=== PATIENT | female | born 1950 | race Caucasian/White ===

== ENCOUNTER 2016-05-29 07:55 | Day surgery (SDC) | payer MEDICARE, OTHER ==
[2016-05-27 09:01] VITALS: BMI 39.6
[~2016-05-29 07:55] MED LIST: LACTATED RINGERS 1,000 ML IV SCH
[2016-05-29 08:20] VITALS: TEMP 98.1
[2016-05-29] MEDS ORDERED: LIDOCAINE 1% 20 ML VIAL (10MG/ML) FOR IV START INTRADERMA ONE (08:26)
[2016-05-29] MEDS ORDERED: LIDOCAINE 1% INJ 10MG/ML (20 ML MDV) ONE (09:23)
[2016-05-29] MEDS ORDERED: PROPOFOL 10 MG/ML 20 ML VIAL IV ONE (09:23)
--- NOTE | 2016-05-29 09:41 | P.PCN ---
Date of Procedure: 05/29/16 Procedure(s) Performed: Brief history: Patient is a pleasant 65-year-old white female, scheduled for an elective upper endoscopy as well as colonoscopy as a part of evaluation of possible GERD/for the last 2 months duration and prior history of colon polyps. Her last colonoscopy was in 2009. Procedure performed: Esophagogastroduodenoscopy with biopsy Colonoscopy Preoperative diagnosis: Chronic cough/GERD History of colon polyps Anesthesia: MAC Procedure: After informed consent was obtained from the patient was brought into the endoscopy unit and IV conscious sedation was administered by anesthesia under continuous monitoring. Initially upper endoscopy was done. The Olympus GF 160 video endoscope was inserted inserted into the mouth and esophagus intubated without any difficulty and was gradually advanced into the stomach and duodenum and carefully examined. The bulb and second part of the duodenum appeared normal. The scope was then withdrawn into the stomach adequately insufflated with air and upon careful examination the antrum had scattered erosions consistent with gastritis and biopsies were done from this area. The body, cardia and fundus appeared normal. The scope was then withdrawn into the esophagus. The GE junction was located at 40 cm to the incisors. It appeared regular with no erythema erosions or ulcerations. Rest of the esophagus appeared normal. labs were done from the distal esophagus. Patient tolerated the procedure well. At this time the patient continued to remain sedation. Initial digital rectal examination was normal. Olympus CF 160 video colonoscope was then inserted into the rectum and gradually advanced to the cecum without any difficulty. Careful examination was performed as the scope was gradually being withdrawn. The prep was excellent. The cecum, ascending colon, transverse colon, descending colon, sigmoid colon and rectum appeared normal. Retroflexion was performed in the rectum and no lesions were noted. Patient tolerated the procedure well. Impression: 1. Upper endoscopy revealed mild antral gastritis but no evidence of esophagitis. 2. Colonoscopy revealed normal-appearing colon from rectum to cecum with no evidence of colitis or colorectal neoplasia. Recommendations: Findings of this examination were discussed with the patient as well as her family. She was advised to follow with the biopsy results. She was restarted on Prilosec 40 mg daily and she was advised to continue the same for 3 months to see if she has any improvement in her. She can have a repeat colonoscopy in 5 years because of the prior history of colon polyps.
[2016-05-29 10:01] VITALS: BP 130/88; PULSE 77; RESP 18
== END 2016-05-29 10:19 | disposition home or self-care (01) ==
LOC: ORWHC2ENDO 07:55
PROVIDERS: ATTEND Internal Medicine Gastroenterology
DX: K29.50 Unspecified chronic gastritis without bleeding (principal); Z12.11 Encounter for screening for malignant neoplasm of colon; K21.9 Gastro-esophageal reflux disease without esophagitis; Z86.010 Personal history of colon polyps; Z79.899 Other long term (current) drug therapy
CPT/HCPCS: 88305; 88342; 43239; J2001; J2704; G0121

== ENCOUNTER → 2017-07-21 | Outpatient (CLI) | payer MEDICARE, OTHER | END | disposition home or self-care (01) | LOC: LABWHC1 10:02 | PROVIDERS: ATTEND Otolaryngology | DX: J30.89 Other allergic rhinitis (principal) | CPT/HCPCS: 36415 ==

== ENCOUNTER 2021-09-11 13:28 | Observation (INO) | payer MEDICARE, OTHER ==
--- NOTE | 2021-09-11 16:02 | ED ---
General Adult HPI - General Chief complaint: Neuro Symptoms/Deficit Stated complaint: Hypertension/TIA Symptoms/Sent by [facility] Time Seen by Provider: 09/11/21 15:37 Source: patient, RN notes reviewed Mode of arrival: ambulatory Limitations: no limitations - History of Present Illness Initial comments: Patient is a pleasant 71-year-old female presenting to the emergency department with concerns for speech problems. Symptoms started 2 days ago. Patient had complete aphasia last around 5 minutes. Patient has had some occasional garbled words and difficulty finding words since that time. This has somewhat progressed. No extremity weakness. Patient does not feel confused. Patient has had some difficulty with her asthma recently as well. Patient did have computed tomography scan done 2 days ago. - Related Data Home Medications Medication Instructions Recorded Confirmed Albuterol Inhaler [Ventolin Hfa 1 - 2 puff INHALATION Q6HR PRN 05/27/16 05/29/16 Inhaler] Cetirizine HCl [Zyrtec] 10 mg PO DAILY 05/27/16 05/29/16 Ergocalciferol (Vitamin D2) 50,000 unit PO TH 05/27/16 05/29/16 [Vitamin D2] Escitalopram [Lexapro] 20 mg PO HS 05/27/16 05/29/16 Ibuprofen [Advil] 400 mg PO Q6H PRN 05/27/16 05/29/16 Losartan [Cozaar] 25 mg PO HS 05/27/16 05/29/16 Multivit-Min/Iron/Folic/Lutein 1 each PO DAILY 05/27/16 05/29/16 [Centrum Silver Women Tablet] Prilosec 1 tab PO DAILY 05/27/16 05/29/16 Allergies Allergy/AdvReac Type Severity Reaction Status Date / Time codeine Allergy Nausea & Verified 09/11/21 15:56 Vomiting Iodinated Contrast Media Allergy Unknown Verified 09/11/21 15:56 latex Allergy Swelling Verified 09/11/21 15:56 prednisone Allergy tachycardia, Verified 09/11/21 15:56 elev. b/p, red face Sulfa (Sulfonamide Allergy Nausea & Verified 09/11/21 15:56 Antibiotics) Vomiting suture Allergy "they Verified 09/11/21 15:56 don't hold, and I get infection" Review of Systems ROS Statement: Those systems with pertinent positive or pertinent negative responses have been documented in the HPI. ROS Other: All systems not noted in ROS Statement are negative. Constitutional: Denies: fever Eyes: Denies: eye pain ENT: Denies: ear pain Respiratory: Reports: as per HPI Cardiovascular: Denies: chest pain Endocrine: Denies: fatigue Gastrointestinal: Denies: abdominal pain Genitourinary: Denies: dysuria Musculoskeletal: Denies: back pain Skin: Denies: rash Neurological: Reports: as per HPI. Denies: headache, weakness, confusion Past Medical History Past Medical History: Asthma, COPD, CVA/TIA, Hyperlipidemia, Hypertension History of Any Multi-Drug Resistant Organisms: None Reported Past Surgical History: Cholecystectomy, Orthopedic Surgery, Tubal Ligation Past Psychological History: No Psychological Hx Reported Smoking Status: Never smoker Past Alcohol Use History: None Reported Past Drug Use History: None Reported General Exam Limitations: no limitations General appearance: alert, in no apparent distress Head exam: Present: normocephalic Eye exam: Present: normal appearance, PERRL, EOMI ENT exam: Present: normal oropharynx Neck exam: Present: normal inspection Respiratory exam: Present: normal lung sounds bilaterally Cardiovascular Exam: Present: regular rate, normal rhythm GI/Abdominal exam: Present: soft. Absent: tenderness Extremities exam: Present: normal inspection Neurological exam: Present: alert, oriented X3, CN II-XII intact. Absent: motor sensory deficit Expanded Neurological exam: Present: protecting the airway Cranial nerves: EOM's Intact: Normal Sensory exam: Upper Extremity Light Touch: Normal, Lower Extremity Light Touch: Normal Motor strength exam: RUE: 5, LUE: 5, RLE: 5, LLE: 5 Eye Response: (4) open spontaneously Motor Response: (6) obeys commands Verbal Response: (5) oriented Psychiatric exam: Present: anxious Skin exam: Present: normal color Course Vital Signs 09/11/21 15:46 Temperature 98.2 F Pulse Rate 111 H Respiratory 18 Rate Blood Pressure 190/103 O2 Sat by Pulse 97 Oximetry EKG Findings - EKG Comments: EKG Findings:: Sinus rhythm with 3-99. HI 113. QRS 96. QT 327. QTC 393. Normal axis. Normal QRS. No acute ST change. Medical Decision Making - Medical Decision Making Patient reevaluated. Patient and family updated. [facility] has been paged for admission, covering for hospital observation call - Lab Data Result diagrams: 09/11/21 16:48 09/11/21 16:48 Lab Results 09/11/21 09/11/21 09/11/21 Range/Units 15:57 16:48 16:48 WBC 11.3 H (3.8-10.6) k/uL RBC 4.90 (3.80-5.40) m/uL Hgb 15.2 (11.4-16.0) gm/dL Hct 48.0 H (34.0-46.0) % MCV 98.1 (80.0-100.0) fL MCH 31.1 (25.0-35.0) pg MCHC 31.7 (31.0-37.0) g/dL RDW 12.8 (11.5-15.5) % Plt Count 302 (150-450) k/uL MPV 7.6 Neutrophils % 70 % Lymphocytes % 19 % Monocytes % 6 % Eosinophils % 2 % Basophils % 1 % Neutrophils # 7.9 H (1.3-7.7) k/uL Lymphocytes # 2.2 (1.0-4.8) k/uL Monocytes # 0.7 (0-1.0) k/uL Eosinophils # 0.2 (0-0.7) k/uL Basophils # 0.1 (0-0.2) k/uL PT 10.8 (9.0-12.0) sec INR 1.0 (<1.2) APTT 27.2 (22.0-30.0) sec Sodium (137-145) mmol/L Potassium (3.5-5.1) mmol/L Chloride (98-107) mmol/L Carbon Dioxide (22-30) mmol/L Anion Gap mmol/L BUN (7-17) mg/dL Creatinine (0.52-1.04) mg/dL Est GFR (CKD-EPI)AfAm (>60 ml/min/1.73 sqM) Est GFR (CKD-EPI)NonAf (>60 ml/min/1.73 sqM) Glucose (74-99) mg/dL Calcium (8.4-10.2) mg/dL Total Bilirubin (0.2-1.3) mg/dL AST (14-36) U/L ALT (4-34) U/L Alkaline Phosphatase (38-126) U/L Troponin I (0.000-0.034) ng/mL Total Protein (6.3-8.2) g/dL Albumin (3.5-5.0) g/dL Urine Color Light Yellow Urine Appearance Clear (Clear) Urine pH 6.0 (5.0-8.0) Ur Specific [place] 1.011 (1.001-1.035) Urine Protein Negative (Negative) Urine Glucose (UA) Negative (Negative) Urine Ketones Trace H (Negative) Urine Blood Negative (Negative) Urine Nitrite Negative (Negative) Urine Bilirubin Negative (Negative) Urine Urobilinogen <2.0 (<2.0) mg/dL Ur Leukocyte Esterase Negative (Negative) Urine Opiates Screen Not Detected (NotDetected) Ur Oxycodone Screen Not Detected (NotDetected) Urine Methadone Screen Not Detected (NotDetected) Ur Propoxyphene Screen Not Detected (NotDetected) Ur Barbiturates Screen Not Detected (NotDetected) U Tricyclic Antidepress Not Detected (NotDetected) Ur Phencyclidine Scrn Not Detected (NotDetected) Ur Amphetamines Screen Not Detected (NotDetected) U Methamphetamines Scrn Not Detected (NotDetected) U Benzodiazepines Scrn Not Detected (NotDetected) Urine Cocaine Screen Not Detected (NotDetected) U Marijuana (THC) Screen Not Detected (NotDetected) 09/11/21 09/11/21 Range/Units 16:48 16:48 WBC (3.8-10.6) k/uL RBC (3.80-5.40) m/uL Hgb (11.4-16.0) gm/dL Hct (34.0-46.0) % MCV (80.0-100.0) fL MCH (25.0-35.0) pg MCHC (31.0-37.0) g/dL RDW (11.5-15.5) % Plt Count (150-450) k/uL MPV Neutrophils % % Lymphocytes % % Monocytes % % Eosinophils % % Basophils % % Neutrophils # (1.3-7.7) k/uL Lymphocytes # (1.0-4.8) k/uL Monocytes # (0-1.0) k/uL Eosinophils # (0-0.7) k/uL Basophils # (0-0.2) k/uL PT (9.0-12.0) sec INR (<1.2) APTT (22.0-30.0) sec Sodium 136 L (137-145) mmol/L Potassium 4.3 (3.5-5.1) mmol/L Chloride 106 (98-107) mmol/L Carbon Dioxide 23 (22-30) mmol/L Anion Gap 7 mmol/L BUN 14 (7-17) mg/dL Creatinine 0.84 (0.52-1.04) mg/dL Est GFR (CKD-EPI)AfAm 81 (>60 ml/min/1.73 sqM) Est GFR (CKD-EPI)NonAf 71 (>60 ml/min/1.73 sqM) Glucose 96 (74-99) mg/dL Calcium 9.1 (8.4-10.2) mg/dL Total Bilirubin 0.9 (0.2-1.3) mg/dL AST 30 (14-36) U/L ALT 18 (4-34) U/L Alkaline Phosphatase 96 (38-126) U/L Troponin I <0.012 (0.000-0.034) ng/mL Total Protein 6.9 (6.3-8.2) g/dL Albumin 4.0 (3.5-5.0) g/dL Urine Color Urine Appearance (Clear) Urine pH (5.0-8.0) Ur Specific [place] (1.001-1.035) Urine Protein (Negative) Urine Glucose (UA) (Negative) Urine Ketones (Negative) Urine Blood (Negative) Urine Nitrite (Negative) Urine Bilirubin (Negative) Urine Urobilinogen (<2.0) mg/dL Ur Leukocyte Esterase (Negative) Urine Opiates Screen (NotDetected) Ur Oxycodone Screen (NotDetected) Urine Methadone Screen (NotDetected) Ur Propoxyphene Screen (NotDetected) Ur Barbiturates Screen (NotDetected) U Tricyclic Antidepress (NotDetected) Ur Phencyclidine Scrn (NotDetected) Ur Amphetamines Screen (NotDetected) U Methamphetamines Scrn (NotDetected) U Benzodiazepines Scrn (NotDetected) Urine Cocaine Screen (NotDetected) U Marijuana (THC) Screen (NotDetected) - Radiology Data Radiology results: report reviewed (CT brain shows no acute process), image reviewed (X-ray shows no acute process) Disposition Clinical Impression: Cerebrovascular accident (CVA) Disposition: ADMITTED IP TO THIS HOSP Is patient prescribed a controlled substance at d/c from ED?: No Referrals: Nonstaff,Physician [Primary Care Provider] - 1-2 days Time of Disposition: 18:49
[2021-09-11 17:06] LABS: Basophils # (A) 0.1 k/uL (0-0.2); Basophils % (A) 1 %; Eosinophils # (A) 0.2 k/uL (0-0.7); Eosinophils % (A) 2 %; HGB 15.2 gm/dL (11.4-16.0); Lymphocytes # (A) 2.2 k/uL (1.0-4.8); Lymphocytes % (A) 19 %; MCH 31.1 pg (25.0-35.0); MCHC 31.7 g/dL (31.0-37.0); MCV 98.1 fL (80.0-100.0); Mean Platelet Volume 7.6; Monocytes # (A) 0.7 k/uL (0-1.0); Monocytes % (A) 6 %; Neutrophils # (A) 7.9 k/uL (1.3-7.7); Neutrophils % (A) 70 %; Platelet Count 302 k/uL (150-450); RDW 12.8 % (11.5-15.5); WBC 11.3 k/uL (3.8-10.6)
[2021-09-11 17:12] LABS: Appearance,Urine Clear (Clear); Bilirubin,Urine Negative (Negative); Blood,Urine Negative (Negative); Color,Urine Light Yellow; Glucose,Urine (UA) Negative (Negative); Ketones,Urine Trace (Negative); Leukocyte Esterase,Urine Negative (Negative); Nitrite,Urine Negative (Negative); Protein,Urine Negative (Negative); Specific Gravity,Urine 1.011 (1.001-1.035); Urobilinogen,Urine <2.0 mg/dL (<2.0)
[2021-09-11 17:16] LABS: Calcium 9.1 mg/dL (8.4-10.2); Potassium 4.3 mmol/L (3.5-5.1); Total Bilirubin 0.9 mg/dL (0.2-1.3); Total Protein 6.9 g/dL (6.3-8.2)
[2021-09-11 17:17] LABS: Partial Thromboplastin Time 27.2 sec (22.0-30.0); Prothrombin Time 10.8 sec (9.0-12.0)
[2021-09-11 17:32] LABS: Amphetamine Screen,Urine Not Detected (NotDetected); Barbiturate Screen,Urine Not Detected (NotDetected); Benzodiazepines Screen,Urine Not Detected (NotDetected); Cocaine Screen,Urine Not Detected (NotDetected); Methadone Screen, Urine Not Detected (NotDetected); Opiate Screen,Urine Not Detected (NotDetected); Oxycodone Screen, Urine Not Detected (NotDetected); Phencyclidine Screen,Urine Not Detected (NotDetected); Tricyclic Antidepressant,Urine Not Detected (NotDetected); Urn Cannabinoid Scrn Not Detected (NotDetected)
--- NOTE | 2021-09-11 18:09 | CT ---
EXAMINATION TYPE: CT brain wo con DATE OF EXAM: 09/11/2021 HISTORY: htn, weakness CT DLP: 1113.4 mGycm. Automated Exposure Control for Dose Reduction was Utilized. TECHNIQUE: CT scan of the head is performed without contrast. COMPARISON: None. FINDINGS: There is no acute intracranial hemorrhage or midline shift identified. There is diffuse v entricular and sulcal prominence consistent with diffuse age-related cerebral atrophy. There is low- attenuation in the periventricular white matter consistent with chronic small vessel ischemic change. The globes are intact and the visualized sinuses are clear. IMPRESSION: No acute intracranial hemorrhage or midline shift. There is diffuse age-related cerebra l atrophy and chronic small vessel ischemic change noted.
--- NOTE | 2021-09-11 18:10 | XR ---
EXAMINATION: XR chest 2V DATE AND TIME: 09/11/2021 5:48 PM CLINICAL INDICATION: PHH; altered mental status TECHNIQUE: Departmental protocol COMPARISON: None FINDINGS: Overlying soft tissues are prominent. The lungs appear well-expanded and clear. The pleural spaces are negative. The cardiac silhouette is not enlarged. The remainder of the mediastinal silhouette is unremarkable. The skeletal structures and soft tissues are negative for acute findings. IMPRESSION: No acute radiographic process.
[2021-09-11] MEDS ORDERED: ASPIRIN 325 MG TAB PO STA (18:50)
[2021-09-11] MEDS ORDERED: ALPRAZolam 0.25 MG TAB PO STA (18:50)
[2021-09-11] MEDS: SODIUM CHLORIDE 0.9% 1,000 ML IV SCH (20:33)
[2021-09-11] MEDS: ACETAMINOPHEN TAB 500 MG TAB PO PRN (22:21)
--- NOTE | 2021-09-12 03:11 | P.HPIM ---
History of Present Illness H&P Date: 09/11/21 Chief Complaint: Speech difficulties and dizziness 71-year-old female with history of asthma and hypertension Patient comes in for evaluation of speech difficulties and ongoing dizziness he denies any falls or recent head injury. She reports that on Wednesday around evening time she woke up from a nap and was mumbling having difficulties finding words that lasted for about 5 minutes she was concerned that she was having a stroke. However she didn't seek medical attention until next day when she went to the hospital due to breathing difficulties she was given some breathing treatments and work was discharged home then she got concerned that she forgot to mention the recent neurologic symptoms that was concerning for a stroke to her so she goes again to the hospital for evaluation she claims that the rash and few tests doing scan of the brain and other blood work and carotid ultrasound and they all came back normal she was again sent home. However today she was still not feeling well still having ongoing speech difficulties and now dizziness again denies any falling denies any head injury she denies any chest pain trouble breathing denies any other focal neuro deficits denies any gait disturbances. In the ED CT of the brain was negative patient was admitted for neurology evaluation EKG normal sinus rhythm Chest x-ray no acute pathology Blood work overall unremarkable Patient denies any tobacco smoking or alcohol consumption. Patient denies any history of cardiac disease denies any history of stroke denies any history of atrial fibrillation Review of Systems Pertinent positives as noted in HPI. All other systems were reviewed and are negative Past Medical History Past Medical History: Asthma, COPD, CVA/TIA, Hyperlipidemia, Hypertension History of Any Multi-Drug Resistant Organisms: None Reported Past Surgical History: Cholecystectomy, Orthopedic Surgery, Tubal Ligation Past Psychological History: No Psychological Hx Reported Smoking Status: Never smoker Past Alcohol Use History: None Reported Past Drug Use History: None Reported - Past Family History Family Family Medical History: No Reported History Medications and Allergies Home Medications Medication Instructions Recorded Confirmed Type Albuterol Inhaler [Ventolin Hfa 2 puff INHALATION RT-QID PRN 05/27/16 09/11/21 History Inhaler] Cetirizine HCl [Zyrtec] 10 mg PO DAILY 05/27/16 09/11/21 History Multivit-Min/Iron/Folic/Lutein 1 tab PO DAILY 05/27/16 09/11/21 History [Centrum Silver Women Tablet] Acetaminophen Tab [Tylenol Tab] 1,000 mg PO Q6H PRN 09/11/21 09/11/21 History Aspirin EC [Ecotrin Low Dose] 81 mg PO DAILY 09/11/21 09/11/21 History Atorvastatin [Lipitor] 40 mg PO DAILY 09/11/21 09/11/21 History Crystal Flush Balance Capsules 2 cap PO DAILY 09/11/21 09/11/21 History Fluticasone Nasal Taylor [Flonase 2 spr EA NOSTRIL DAILY 09/11/21 09/11/21 History Nasal Taylor] Fluticasone Propionate [Flovent 1 puff INHALATION RT-BID 09/11/21 09/11/21 History Diskus] Losartan [Cozaar] 50 mg PO DAILY 09/11/21 09/11/21 History Montelukast [Singulair] 10 mg PO DAILY 09/11/21 09/11/21 History Allergies Allergy/AdvReac Type Severity Reaction Status Date / Time codeine Allergy Nausea & Verified 09/11/21 19:12 Vomiting Iodinated Contrast Media Allergy Unknown Verified 09/11/21 19:12 latex Allergy Swelling Verified 09/11/21 19:12 @contact site prednisone AdvReac tachycardia, Verified 09/11/21 19:12 elev. b/p, red face Sulfa (Sulfonamide AdvReac Nausea & Verified 09/11/21 19:12 Antibiotics) Vomiting suture AdvReac "they Verified 09/11/21 19:12 don't hold, and I get infection" Physical Exam Vitals: Vital Signs Temp Pulse Resp BP Pulse Ox 09/11/21 15:46 98.2 F 111 H 18 190/103 97 Intake and Output 09/11/21 09/11/21 09/11/21 06:59 14:59 22:59 Other: Weight 113.398 kg Constitutional: No acute distress, conversant, pleasant Eyes: Anicteric sclerae, moist conjunctiva, Pupils equal round reactive to light ENMT: NC/AT Oropharynx clear, no erythema, or exudates Neck: Supple, FROM, no masses, or JVD No carotid bruits No thyromegaly Lungs: Clear to auscultation Clear to percussion Normal respiratory effort, no accessory muscle use Cardiovascular: Heart regular in rate and rhythm, No murmurs, gallops, or rubs No peripheral edema Abdominal: Soft Nontender, no guarding, rebound or rigidity Abdomen moving with respiration Normoactive bowel sounds No hepatomegaly, No splenomegaly No palpable mass No abdominal wall hernia noted Skin: Normal temperature, tone, texture, turgor No induration No subcutaneous nodules No rash, lesions No ulcers Extremities: No digital cyanosis No clubbing Pedal pulses intact and symmetrical Radial pulses intact and symmetrical No calf tenderness Psychiatric: Alert and oriented to person, place and time Appropriate affect fair judgement Neuro Muscles Strength 5/5 in all 4 extremities Sensation to light touch grossly present throughout Cranial nerves II-XII grossly intact No focal sensory deficits, finger-nose exam intact heel bishop exam intact Lymphatics: no palpable cervical or supraclavicular , or inguinal lymph nodes Results CBC & Chem 7: 09/11/21 16:48 09/11/21 16:48 Labs: Abnormal Lab Results - Last 24 Hours (Table) 09/11/21 09/11/21 09/11/21 Range/Units 15:57 16:48 16:48 WBC 11.3 H (3.8-10.6) k/uL Hct 48.0 H (34.0-46.0) % Neutrophils # 7.9 H (1.3-7.7) k/uL Sodium 136 L (137-145) mmol/L Urine Ketones Trace H (Negative) Assessment and Plan Assessment: Recent stroke/TIA Neurochecks Neurology evaluation CT of the brain negative Check lipid profile Check TSH PT/OT evaluation Cardiac monitoring Monitor vital signs Fall precautions Chronic conditions Mild persistent asthma, continue with breathing treatments Hypertension controlled resume home blood pressure medications DVT prophylaxis heparin subcu 3 times a day Full code
[2021-09-12] MEDS: FLUTICASONE 110 MCG INHALER INHALATION SCH ×2 (07:27→19:19)
[2021-09-12] MEDS: HEPARIN SODIUM,PORCINE/PF 5,000 UNIT/0.5 ML SYRINGE SQ SCH ×2 (08:15→17:16)
[2021-09-12] MEDS ORDERED: ASPIRIN 325 MG TAB PO SCH (09:00)
[2021-09-12 09:09] LABS: LDL Cholesterol,Calculated 100.3 mg/dL (0.0-131.0)
--- NOTE | 2021-09-12 12:18 | CA ---
Transthoracic Echo Report Name: Amy Tyler Age: 71 Gender: F : 1950 Exam Date: 09/12/2021 07:50 Exam Location: [facility] Ht (in): 61 Wt (lb): 250 Ordering Physician: Abe Ramos MD Attending/Referring Phys: [id number], Richard Workforce Management Consultant Herminia Taylor RDCS Procedure CPT: Indications: stroke Cardiac Hx: Technical Quality: Technically difficult study Contrast 1: Lumason Total Dose (mL): 1 Contrast 2: Total Dose (mL): MEASUREMENTS (Male / Female) Normal Values 2D ECHO LV Diastolic Diameter PLAX 3.7 cm 4.2 - 5.9 / 3.9 - 5.3 cm LV Systolic Diameter PLAX 2.6 cm IVS Diastolic Thickness 1.3 cm 0.6 - 1.0 / 0.6 - 0.9 cm LVPW Diastolic Thickness 1.2 cm 0.6 - 1.0 / 0.6 - 0.9 cm LV Relative Wall Thickness 0.7 RV Internal Dim ED PLAX 3.2 cm M-MODE Aortic Root Diameter MM 3.7 cm LA Systolic Diameter MM 3.5 cm LA Ao Ratio MM 0.9 MV E Point Septal Separation 1.6 cm AV Cusp Separation MM 2.6 cm DOPPLER AV Peak Velocity 89.6 cm/s AV Peak Gradient 3.2 mmHg MV Area PHT 6.3 cm??? MR Peak Velocity 144.8 cm/s MR Peak Gradient 8.4 mmHg Mitral E Point Velocity 73.4 cm/s Mitral A Point Velocity 76.5 cm/s Mitral E to A Ratio 1.0 MV Deceleration Time 120.8 ms TR Peak Velocity 101.1 cm/s TR Peak Gradient 4.1 mmHg Right Ventricular Systolic Press 8.9 mmHg FINDINGS Left Ventricle Left ventricular ejection fraction is estimated at 55-60 %. Left ventricular cavity size normal.mild concentric left ventricular hypertrophy. Right Ventricle Right ventricle not well visualized. Right ventricular systolic pressure within normal limits. Right Atrium Right atrium not well visualized. Left Atrium Normal left atrial size. Mitral Valve Trace mitral regurgitation.mild mitral annular calcification. Aortic Valve Aortic valve not well visualized. Tricuspid Valve Trace tricuspid regurgitation.structurally normal tricuspid valve. Pulmonic Valve Pulmonic valve not well visualized. Pericardium No pericardial effusion. Aorta Aortic root and proximal ascending aorta not well visualized. CONCLUSIONS Technically difficult study. 1. Normal size and systolic function 2. Trace mitral and tricuspid regurgitation 3. The valvular structures were not well visualized Previewed by: Dr. Avery Noland MD (Electronically Signed) Final Date: 12 September 2021 12:17
[2021-09-12] MEDS: LORATADINE 10 MG TAB PO SCH (13:37)
[2021-09-12] MEDS: MONTELUKAST 10 MG TAB PO SCH (13:38)
[2021-09-12] MEDS: LOSARTAN 50 MG TAB PO SCH (13:38)
[2021-09-12] MEDS: ASPIRIN 81 MG PO SCH (13:38)
[2021-09-12] MEDS: ATORVASTATIN 40 MG TAB PO SCH (13:38)
[2021-09-12] MEDS: SODIUM CHLORIDE 0.9% 1,000 ML IV SCH ×2 (17:05→17:15)
--- NOTE | 2021-09-12 17:21 | P.PN ---
Subjective Progress Note Date: 09/12/21 Hospital course: Patient is a very pleasant 71-year-old female with a past medical history of hypertension, hyperlipidemia, COPD not on home oxygen dependent, and previous TIA. She presented to the emergency department with a chief complaint of difficulties with speech/garbled speech and dizziness. Patient reports intermittent episodes of difficulties with speech and dizziness began 09/08/21 and have waxed and waned accompanied by episodes of chest pain, palpitations, and shortness of breath. Patient underwent full evaluation on 09/09/21 at [facility] for these complaints and reportedly underwent a CT and carotid ultrasound which she reports were both normal findings and was later discharged home. Patient reports these symptoms continue to wax and wane and she reports they have not worsened so she came to the emergency department for further evaluation. In the emergency department patient underwent full evaluation a CT head was completed and negative for acute intercranial process showing age related cerebral atrophy and chronic small vessel ischemic changes. EKG was completed revealing normal sinus rhythm and 99 bpm with no noted T wave or ST abnormality showing no signs of acute ischemia. Chest x-ray negative for acute cardiopulmonary process. CBC, coags, and CMP were all unremarkable. Lipid profile unremarkable. Urinalysis negative for blood or infection. Urine drug screen negative. Patient was admitted under our services with consult cardio logy. Echocardiogram was completed revealing a normal EF 55-60% with trace mitral and tricuspid regurgitation. Physical exam: Patient seen and fully evaluated at bedside this morning. Previous episodes of episodic expressive aphasia have now resolved. Patient currently denies having any headache, lightheadedness, dizziness changes in vision or hearing, chest pain, palpitations, shortness of breath, or experiencing any numbness/tingling/weakness in her extremities. Vital signs reviewed and stable. General: Nontoxic, no distress and appears stated age. Derm: Skin warm and dry, normal coloration for ethnicity. Head: Atraumatic, normocephalic and symmetric. Eyes: EOMs intact, no lid lag, and anicteric sclera Mouth: no lip lesions, mucus membranes moist Cardiovascular: regular rate and rhythm with normal S1S2, no murmur, positive posterior tibial pulses bilaterally, and cap refill < 2 seconds. Lungs: Respirations even, regular, and unlabored on room air. Lungs CTA bilaterally, no rhonchi, no rales, no wheezing, and no accessory muscle usage. Abdominal: soft, nontender to palpation, no guarding, no appreciable organomegaly Ext: ROM intact. No gross muscle atrophy, no edema, no contractures Neuro: Speech clear, face symmetrical and CN II-XII grossly intact with no noted focal neuro deficits Psych: Alert and oriented to person, place, time, and situation. Appropriate and pleasant affect. Assessment and Plan of Care: Episodic Expressive aphasia, now resolved TIA Dizziness -CT head negative for acute intercranial process. -EKG showing normal sinus rhythm -Echocardiogram revealing normal EF between 55 and 60% with trace mitral and tricuspid regurgitation. -Neurology following. Appreciate further recommendations -Neuro checks -Continue daily aspirin and atorvastatin Hypertension -Monitor vital signs and continue daily medication regimen with losartan. COPD -Ventolin nebulizers as needed for wheezing and/or shortness of breath and continue daily Singulair. CODE STATUS: Full code DVT prophylaxis: Lovenox Discussed with: Patient and RN Anticipated discharge date: 1-[address]: home A total of 39 minutes was spent on the care of this complex patient more than 50% of the time was spent in counseling and care coordination. I reviewed the documentation as provided by the ANASTASIYA above, who is the original author of this note. I agree with the documented assessment and plan, with the following changes: none Objective - Vital Signs Vital signs: Vital Signs Temp 98.2 F 09/11/21 15:46 Pulse 111 H 09/11/21 15:46 Resp 18 09/11/21 15:46 BP 190/103 09/11/21 15:46 Pulse Ox 97 09/11/21 15:46 FiO2 Intake & Output 09/11/21 09/12/21 09/12/21 18:59 06:59 18:59 Weight 113.398 kg - Labs CBC & Chem 7: 09/11/21 16:48 09/11/21 16:48 Labs: Abnormal Lab Results - Last 24 Hours (Table) 09/11/21 09/11/21 09/11/21 Range/Units 15:57 16:48 16:48 WBC 11.3 H (3.8-10.6) k/uL Hct 48.0 H (34.0-46.0) % Neutrophils # 7.9 H (1.3-7.7) k/uL Sodium 136 L (137-145) mmol/L Urine Ketones Trace H (Negative)
[2021-09-12] MEDS: ENOXAPARIN 40 MG/0.4 ML SYRINGE SQ SCH (17:31)
--- NOTE | 2021-09-12 20:51 | P.CNNES ---
History of Present Illness Consult date: 09/12/21 Requesting physician: Edward Laguerre Reason for Consult: CVA History of Present Illness: Patient is a 71-year-old right-handed female with history of hypertension, asthma, obesity, came to the hospital for evaluation of possible TIA versus stroke, that happened Wednesday night(2 days prior to arrival to the [facility] ER). Patient states that her woke her up at 5 in the morning and she got startled, which she does not like at all. She sat up and was about to say to her [place] "what the hell", but the words came out unintelligible and nonsensical. She usually wakes up very clearheaded. She said she got scared because of her speech difficulty. She couldn't get words out. She walked to the bathroom, was not off-balance but felt slightly dizzy. She took an aspirin. The spell lasted for slightly over 5 minutes and her speech improved. Since then patient has been having some difficulty with her speech, some trouble talking, if she does not concentrate, gets confused. Her thoughts are not as organized as usually is. She did not seek medical attention, but later during the same morning patient started having shortness of breath, swelling in her legs, could not breathe or walk. Therefore she went to [facility]. She underwent chest x-ray, CTA of the chest which was negative. EKG was normal, but her blood pressure was very high. She was started treatment for nebulizer, and Covid testing was performed. She completely forgot to tell in the ER about the episode of speech difficulty that happened the night prior. Just before her discharge she told the doctor in the ED about possible TIA, therefore she underwent computed tomography scan of the head which was read as normal. Patient states that she underwent carotid Doppler, which was completely normal. She was sent home on aspirin 81 mg daily and was recommended to get back to ER if symptoms do not improve or gets worse. She was not taking any antiplatelet medication prior to this visit. The next morning on Wednesday, her symptoms were not better. Therefore she went back to the [facility]. MRI was recommended, and to follow-up with a neurologist as an outpatient. However because of delays in getting an appointment, she decided to come to the [facility] to have an MRI and see a neurologist. She came to the ER on , yesterday at 1:28 PM She still sort of breath, was complaining of a lot of swelling, bloating pointing to her abdominal region in the legs. She believes today it is better than yesterday. She states the swelling in the legs have been getting worse for the last 2-3 weeks. Patient denies any numbness or tingling in the arms or legs. No focal weakness, or visual symptoms. Patient has history of hypertension, but admits that she ran out of her medications about a month ago. She was checking her blood pressure 3 times a day and was running slightly on the higher side. She denies hyperlipidemia. She never smoked, does not drink alcohol. Patient had a CT head performed yesterday, which revealed no acute intracranial hemorrhage or midline shift. There is diffuse age-related cerebral atrophy and chronic small vessel ischemic change noted. I personally reviewed CT head, and shows no acute process. Agree with the findings. EKG shows sinus rhythm with short MD interval. Chest x-ray showed no acute process. Blood test shows WBC 11.3 hemoglobin 15.2, normal platelets. PT/PTT normal, sodium 136, other electrolytes, renal and hepatic panel are normal troponin negative. Urine drug screen negative. UA negative. Troponin negative. Review of Systems Weight gain of 40 pounds in 2 years. Difficulty breathing, swelling, no chest pain. No abdominal pain. No nausea vomiting or diarrhea. Patient does have visual disturbance which she believes is from Track. No new visual disturbance in the last few days. No numbness or tingling. Patient does have problem with low back. Both legs are numb from knees down which she attributes to the back issues. She had knee surgery 4 years ago. All other review of systems reviewed, unremarkable. Past Medical History Past Medical History: Asthma, COPD, Eye Disorder, GERD/Reflux, Hyperlipidemia, Hypertension, Osteoarthritis (OA) Additional Past Medical History / Comment(s): Pt states she has been having pedal edema past one month, bilateral lower leg numbness/tingling, horse shoe kidney, R eye macular pucker with surgery/states vision is blurry, chronic low back pain, DDD, benign colon polyps, sinus problems History of Any Multi-Drug Resistant Organisms: None Reported Past Surgical History: Cholecystectomy, Joint Replacement, Tubal Ligation Additional Past Surgical History / Comment(s): D&C, bilateral total knee arthroplasties, EGD, colonoscopies/benign polypectomy, R eye laser surgery for macular pucker, R eye cataract removed, pilonidal cyst. Past Anesthesia/Blood Transfusion Reactions: Postoperative Nausea & Vomiting (PONV) Smoking Status: Never smoker - Past Family History Father Family Medical History: Diabetes Mellitus, Eye Disorder, Hypertension Additional Family Medical History / Comment(s): Macular degeneration Mother Family Medical History: Coronary Artery Disease (CAD), Osteoarthritis (OA) Additional Family Medical History / Comment(s): Multiple back surgeries, elevated triglycerides, CABG, GI blockage Family Family Medical History: No Reported History Medications and Allergies Home Medications Medication Instructions Recorded Confirmed Type Albuterol Inhaler [Ventolin Hfa 2 puff INHALATION RT-QID PRN 05/27/16 09/11/21 History Inhaler] Cetirizine HCl [Zyrtec] 10 mg PO DAILY 05/27/16 09/11/21 History Multivit-Min/Iron/Folic/Lutein 1 tab PO DAILY 05/27/16 09/11/21 History [Centrum Silver Women Tablet] Acetaminophen Tab [Tylenol Tab] 1,000 mg PO Q6H PRN 09/11/21 09/11/21 History Aspirin EC [Ecotrin Low Dose] 81 mg PO DAILY 09/11/21 09/11/21 History Atorvastatin [Lipitor] 40 mg PO DAILY 09/11/21 09/11/21 History Crystal Flush Balance Capsules 2 cap PO DAILY 09/11/21 09/11/21 History Fluticasone Nasal [place] [Flonase 2 spr EA NOSTRIL DAILY 09/11/21 09/11/21 History Nasal [place]] Fluticasone Propionate [Flovent 1 puff INHALATION RT-BID 09/11/21 09/11/21 History Diskus] Losartan [Cozaar] 50 mg PO DAILY 09/11/21 09/11/21 History Montelukast [Singulair] 10 mg PO DAILY 09/11/21 09/11/21 History Allergies Allergy/AdvReac Type Severity Reaction Status Date / Time codeine Allergy Nausea & Verified 09/11/21 19:12 Vomiting Iodinated Contrast Media Allergy Unknown Verified 09/11/21 19:12 latex Allergy Swelling Verified 09/11/21 19:12 @contact site prednisone AdvReac tachycardia, Verified 09/11/21 19:12 elev. b/p, red face Sulfa (Sulfonamide AdvReac Nausea & Verified 09/11/21 19:12 Antibiotics) Vomiting suture AdvReac "they Verified 09/11/21 19:12 don't hold, and I get infection" Physical Examination - Vital Signs Vital Signs: Vital Signs Temp Pulse Pulse Resp BP BP Pulse Ox 09/12/21 16:44 98.2 F 84 110/66 95 09/12/21 11:46 79 18 121/78 95 Intake and Output 09/12/21 09/12/21 09/12/21 06:59 14:59 22:59 Other: Weight 113.398 kg Patient is an elderly female, very pleasant, in no acute distress. Patient is alert awake oriented to time place and person. Speech and language functions are normal. Patient can name and repeat very well. No aphasia. Patient has very occasional questionable dysarthric speech. Attention, concentration and fund of knowledge is adequate. On cranial examination, pupils are round and reacting to light, visual parikh are full on confrontation, extraocular muscles are intact with no nystagmus. Face is symmetric, tongue protrudes to the midline. Palatal elevation and sensation normal, hearing and shoulder shrug normal, facial sensation normal. Shoulder shrug normal. On muscle strength testing, there is no pronator drift and the strength is normal in arms and legs distally and proximally. Deep tendon reflexes are symmetric, biceps 1, brachioradialis 1, knees 0, ankles 0 and plantars downgoing bilaterally. Sensory to touch is equal with no neglect. Cerebellar function showed no ataxia for [id number] testing. No dysdiadochokinesia. Tone and bulk of muscles normal. Gait normal. She was fairly steady while walking. On general examination, there is no carotid bruit or murmur, S1-S2 audible. Abdomen is soft nontender. Chest is clear. Patient has mild peripheral edema. Results - Laboratory Findings CBC and BMP: 09/11/21 16:48 09/11/21 16:48 Abnormal Lab Findings: Abnormal Labs 09/11/21 09/11/21 09/11/21 15:57 16:48 16:48 WBC 11.3 H Hct 48.0 H Neutrophils # 7.9 H Sodium 136 L Urine Ketones Trace H Assessment and Plan Assessment: * Possible TIA manifesting with transient expressive aphasia, that lasted for over 5 minutes. However since then she has some subjective difficulty with her speech, although her examination was fairly normal. Her NIH stroke scale is 0. * Hypertension * Hyperlipidemia * Obesity * Asthma Plan: * MRI brain without contrast, rule out acute stroke. * Continue aspirin 81 mg daily (loaded with aspirin 325 mg in the ER). Patient was not taking any antiplatelet medication at home prior to this event. * Patient states she had a carotid Doppler performed 2 days ago in [facility], which was normal. May consider obtaining the report. * 2-D echo was a technically difficult study. It revealed normal left ventri cular size and systolic function. Trace MR, trace TR. Valvular structures not well visualized. The aortic root and proximal ascending aorta not well visualized. EF is 55-60%. Mild concentric LVH. Left atrial size is normal. * Lipid panel with cholesterol 176, LDL 100.3, HDL 53 and triglycerides 112. Agree with starting Lipitor 40 mg daily to target LDL <70. Patient not on statins prior to arrival. * Hemoglobin A1c * Telemetric monitoring showing sinus rhythm in around 84. * Medical management of swelling, COPD, bloating as per IM. * Neurologically clear, if MRI of the brain comes back normal with above recommendations. * Dr. Delatorre Will resume neurology service in the morning.
[2021-09-12] MEDS: ACETAMINOPHEN TAB 500 MG TAB PO PRN (21:44)
[2021-09-13] MEDS: SODIUM CHLORIDE 0.9% 1,000 ML IV SCH (02:58)
[2021-09-13] MEDS: FLUTICASONE 110 MCG INHALER INHALATION SCH (07:46)
[2021-09-13] MEDS: MONTELUKAST 10 MG TAB PO SCH (07:57)
[2021-09-13] MEDS: ATORVASTATIN 40 MG TAB PO SCH (07:57)
[2021-09-13] MEDS: LORATADINE 10 MG TAB PO SCH (07:57)
[2021-09-13] MEDS: LOSARTAN 50 MG TAB PO SCH (07:57)
[2021-09-13] MEDS: ASPIRIN 81 MG PO SCH (07:58)
[2021-09-13] MEDS: ENOXAPARIN 40 MG/0.4 ML SYRINGE SQ SCH ×2 (07:58→08:00)
[2021-09-13] MEDS: ALBUTEROL NEBULIZED 2.5 MG/3 ML INHALATION PRN ×2 (08:05→14:31)
[2021-09-13 08:16] VITALS: RESP 18
[2021-09-13 13:32] VITALS: BP 168/84; TEMP 98.3
--- NOTE | 2021-09-13 13:45 | MR ---
EXAMINATION TYPE: MR brain wo con DATE OF EXAM: 09/13/2021 1:40 PM COMPARISON: NONE HISTORY: cva, weakness, htn. FINDINGS: The ventricles, basal cisterns and sulci overlying the cerebral convexities are mildly enlarged. There is evidence of mild periventricular white matter ischemic demyelination. Remote deep white matter insults are also noted. No acute edema is seen on diffusion weighted imaging. There is no evidence for midline shift or mass effect. Acute intracranial hemorrhage or extra-axial collection is not evident. The paranasal sinuses and mastoid air cells are well-aerated. IMPRESSION: Age-related atrophic and chronic small vessel ischemic change. No acute intracranial process at this time.
--- NOTE | 2021-09-13 14:18 | P.DS ---
Providers Date of admission: 09/11/21 18:50 Expected date of discharge: 09/13/21 Attending physician: Lottie Jaramillo MD Consults: 09/11/21 18:51 Consult Physician Routine Consulting Provider: Angélica Haile Consult Reason/Comments: cva Do you want consulting provider notified?: Yes Primary care physician: Physician Nonstaff Hospital Course: Discharge Diagnosis: Episodic Expressive aphasia, now resolved. Believed to be secondary to TIA. TIA. Continue daily aspirin and atorvastatin and follow up outpatient with neurology. Dizziness, resolved. Secondary to above Hypertension. Monitor vital signs and continue daily medication regimen with losartan. COPD -Ventolin nebulizers as needed for wheezing and/or shortness of breath and continue daily Singulair. Hospital Course: Patient is a very pleasant 71-year-old female with a past medical history of hypertension, hyperlipidemia, COPD not on home oxygen dependent, and previous TIA. She presented to the emergency department with a chief complaint of difficulties with speech/garbled speech and dizziness. Patient reports inte rmittent episodes of difficulties with speech and dizziness began 09/08/21 and have waxed and waned accompanied by episodes of chest pain, palpitations, and shortness of breath. Patient underwent full evaluation on 09/09/21 at [facility] for these complaints and reportedly underwent a CT and carotid ultrasound which she reports were both normal findings and was later discharged home. Patient reports these symptoms continue to wax and wane and she reports they have not worsened so she came to the emergency department for further evaluation. In the emergency department patient underwent full evaluation a CT head was completed and negative for acute intercranial process showing age related cerebral atrophy and chronic small vessel ischemic changes. EKG was completed revealing normal sinus rhythm and 99 bpm with no noted T wave or ST abnormality showing no signs of acute ischemia. Chest x-ray negative for acute cardiopulmonary process. CBC, coags, and CMP were all unremarkable. Lipid profile unremarkable. Urinalysis negative for blood or infection. Urine drug screen negative. Patient was admitted under our services with consult neurology. Patient had no further episodes of difficulties with speech or dizziness since arrival to our facility. Echocardiogram was completed revealing a normal EF 55-60% with trace mitral and tricuspid regurgitation. MRI completed negative for acute intercranial process revealing age-related atrophic and chronic small vessel ischemic changes. Hemoglobin A1c 5.8%. Patient educated on importance of heart healthy and carb consistent diet. Lipid profile unremarkable. Patient is medically stable at this time and is stable for discharge home. Neurology recommending outpatient follow-up with neurologist in 1-2 weeks and continuation of atorvastatin and aspirin. Physical exam: Vital signs reviewed and stable. General: Nontoxic, no distress and appears stated age. Derm: Skin warm and dry, normal coloration for ethnicity. Head: Atraumatic, normocephalic and symmetric. Eyes: EOMs intact, no lid lag, and anicteric sclera Mouth: no lip lesions, mucus membranes moist Cardiovascular: regular rate and rhythm with normal S1S2, no murmur, positive posterior tibial pulses bilaterally, and cap refill < 2 seconds. Lungs: Respirations even, regular, and unlabored on room air. Lungs CTA bilaterally, no rhonchi, no rales, no wheezing, and no accessory muscle usage. Abdominal: soft, nontender to palpation, no guarding, no appreciable organomegaly Ext: ROM intact. No gross muscle atrophy, no edema, no contractures Neuro: Speech clear, face symmetrical and CN II-XII grossly intact with no noted focal neuro deficits Psych: Alert and oriented to person, place, time, and situation. Appropriate and pleasant affect. A total of 35 minutes of time were spent preparing this complex discharge summary. Pt was discharged on 09/13/21 at 2:14 PM. Patient Condition at Discharge: Stable Plan - Discharge Summary Discharge Rx Participant: No New Discharge Prescriptions: Continue Atorvastatin [Lipitor] 40 mg PO DAILY Aspirin EC [Ecotrin Low Dose] 81 mg PO DAILY Acetaminophen Tab [Tylenol] 1,000 mg PO Q6H PRN PRN Reason: Fever And/ Or Pain Fluticasone Nasal [place] [Flonase Nasal [place]] 2 spr EA NOSTRIL DAILY Montelukast [Singulair] 10 mg PO DAILY Losartan [Cozaar] 50 mg PO DAILY Fluticasone Propionate [Flovent Diskus] 1 puff INHALATION RT-BID Crystal Flush Balance Capsules 2 cap PO DAILY No Action Cetirizine HCl [Zyrtec] 10 mg PO DAILY Albuterol Inhaler [Ventolin Hfa Inhaler] 2 puff INHALATION RT-QID PRN PRN Reason: Shortness Of Breath Multivit-Min/Iron/Folic/Lutein [Centrum Silver Women Tablet] 1 tab PO DAILY Discharge Medication List Albuterol Inhaler [Ventolin Hfa Inhaler] 2 puff INHALATION RT-QID PRN 05/27/16 [History] Cetirizine HCl [Zyrtec] 10 mg PO DAILY 05/27/16 [History] Multivit-Min/Iron/Folic/Lutein [Centrum Silver Women Tablet] 1 tab PO DAILY 05/27/16 [History] Acetaminophen Tab [Tylenol] 1,000 mg PO Q6H PRN 09/11/21 [History] Aspirin EC [Ecotrin Low Dose] 81 mg PO DAILY 09/11/21 [History] Atorvastatin [Lipitor] 40 mg PO DAILY 09/11/21 [History] Crystal Flush Balance Capsules 2 cap PO DAILY 09/11/21 [History] Fluticasone Nasal [place] [Flonase Nasal [place]] 2 spr EA NOSTRIL DAILY 09/11/21 [History] Fluticasone Propionate [Flovent Diskus] 1 puff INHALATION RT-BID 09/11/21 [History] Losartan [Cozaar] 50 mg PO DAILY 09/11/21 [History] Montelukast [Singulair] 10 mg PO DAILY 09/11/21 [History] Follow up Appointment(s)/Referral(s): Eliu Segura MD [REFERRING] - 1-2 Days Samantha Israel MD [REFERRING] - 1 Week (office closed please call on Wednesday to schedule appointment ) Patient Instructions/Handouts: Transient Ischemic Attack (DC) Activity/Diet/Wound Care/Special Instructions: Activity: As tolerated. Take breaks as needed. Diet: Heart healthy and carb consistent diet. Avoid salts, or foods with hidden salts such as canned or boxed foods and frozen dinners. Extra salt makes your heart work harder and traps the fluid in your body for longer. Special Instructions: Take all of your medications as directed and remember to keep all of your doct or's appointments and follow-up as needed. Thank you for allowing us to participate in your care, it was truly a pleasure having you for our patient!!! Discharge Disposition: HOME SELF-CARE
[2021-09-13 14:34] VITALS: PULSE 100
--- NOTE | 2021-09-13 16:02 | P.PN ---
Subjective Progress Note Date: 09/13/21 The patient is seen in neurologic follow-up on September 13, 2021, via teleneurology. The chart is reviewed. Imaging is reviewed. The patient reports continuing to feel as if there is something wrong with the l eft side of her face. Is continuing to have to concentrate to get her words out correctly. She denies headache. The patient reports that her MRI is scheduled for 1:15 PM today. Objective - Vital Signs Vital signs: Vital Signs Temp 98.3 F 09/13/21 12:00 Pulse 100 09/13/21 14:39 Resp 18 09/13/21 12:00 BP 168/84 09/13/21 12:00 Pulse Ox 97 09/13/21 12:00 FiO2 Intake & Output 09/12/21 09/13/21 09/13/21 18:59 06:59 18:59 Weight 113.398 kg 113.852 kg Other: Voiding Method Toilet # Voids 1 2 3 - Exam Gen.: The patient is reclining in the bed. She is in no acute distress. HEENT: Head is atraumatic, normocephalic. Fundus not visualized. There is no scleral icterus. Mucous membranes are moist. Neurological examination Mental status: The patient is awake, alert and oriented 3. Her speech is clear. The patient is able to accurately repeat several phrases. He accurately names objects. There is no evidence of dysarthria or aphasia. There does not appear to be any word finding difficulties. Cranial nerves: 2-12 intact as tested - Labs CBC & Chem 7: 09/11/21 16:48 09/11/21 16:48 Assessment and Plan Assessment: 1. Possible TIA manifesting with transient expressive aphasia, that lasted for over 5 minutes. 2. History of hypertension 3. History of hyperlipidemia 4. History of asthma 5. Obesity Plan: 1. Agree with TIA workup as detailed by Dr. Haile 2. Recommend heart healthy diet 3. Control of blood pressure 4. Exercise and weight loss are recommended 5. If MRI is negative, the patient is neurologically stable for discharge Time with Patient: Less than 30 (spent 20 minutes with patient via telemedicine)
== END 2021-09-13 15:07 | disposition home or self-care (01) ==
LOC: EC 13:28 → 3SCARD 18:50 → 4SSUR 09-12 14:25
PROVIDERS: ADMIT Family Medicine; ATTEND Family Medicine
DX: G45.9 Transient cerebral ischemic attack, unspecified (principal); I10 Essential (primary) hypertension; J44.9 Chronic obstructive pulmonary disease, unspecified; E78.5 Hyperlipidemia, unspecified; G31.89 Other specified degenerative diseases of nervous system; I08.1 Rheumatic disorders of both mitral and tricuspid valves; H35.371 Puckering of macula, right eye; K21.9 Gastro-esophageal reflux disease without esophagitis; J45.30 Mild persistent asthma, uncomplicated; E66.9 Obesity, unspecified; Z88.5 Allergy status to narcotic agent; Z91.040 Latex allergy status; Z88.8 Allergy status to other drugs, medicaments and biological substances; Z88.2 Allergy status to sulfonamides; Z86.73 Personal history of transient ischemic attack (TIA), and cerebral infarction without residual deficits; Z90.49 Acquired absence of other specified parts of digestive tract; Z79.82 Long term (current) use of aspirin; Z79.899 Other long term (current) drug therapy; Z82.49 Family history of ischemic heart disease and other diseases of the circulatory system; Z68.42 Body mass index [BMI] 45.0-49.9, adult
CPT/HCPCS: 99285; 36415; 94640; 94760; 93005; 80061; 80053; 84484; 85025; 85610; 85730; 81003; 80306; 83036; 71046; 70450; 70551; G0378 ×4; C8929; Q9950; 93306

== ENCOUNTER → 2023-01-22 | Outpatient (CLI) | payer MEDICARE, OTHER ==
--- NOTE | 2023-01-22 13:55 | US ---
EXAMINATION TYPE: US thyroid st tissue head/neck DATE OF EXAM: 01/22/2023 COMPARISON: NONE CLINICAL INDICATION: Female, 72 years old with history of E04.1 thyroid nodule; nodule noted on outsi de imaging GLAND SIZE: Right Lobe: 4.0x1.7x1.9 cm Overall Parenchyma: homogeneous Left Lobe: 3.2x0.9x1.6 cm Overall Parenchyma: homogeneous Isthmus Thickness: 0.4 cm NODULES RIGHT: # of nodules measured on right: 1 1. 1.8 X 0.9 x 1.6 cm,mid lateral, solid or almost completely solid, hypoechoic nodule, which is wi tadeo than tall, with smooth margins, without echogenic foci. LEFT: # of nodules measured on left: 0 ISTHMUS: # of nodules measured in the isthmus: 0 Bilateral neck scanned, no evidence of lymphadenopathy. IMPRESSION: Moderately Suspicious: FNA if ? 1.5 cm; Follow if ? 1 cm at 1, 2, 3, and 5 y 2017 ACR TI-RADS LEVEL: TR4 *Highest TI-RADS level nodule reported
[2023-01-22 16:33] LABS: T4, Free (Free Thyroxine) 1.07 ng/dL (0.80-1.80)
== END | disposition home or self-care (01) ==
LOC: RADUSWWP 12:05
PROVIDERS: ATTEND Surgery Plastic and Reconstructive Surgery
DX: E04.1 Nontoxic single thyroid nodule (principal)
CPT/HCPCS: 76536; 84439; 84443

== ENCOUNTER → 2023-01-22 | Outpatient (CLI) | payer MEDICARE, OTHER | END | disposition home or self-care (01) | LOC: LABWHC1 12:42 | PROVIDERS: ATTEND Surgery Plastic and Reconstructive Surgery | DX: Z53.9 Procedure and treatment not carried out, unspecified reason (principal) ==

== ENCOUNTER 2023-03-03 12:19 | Day surgery (SDC) | payer MEDICARE, OTHER ==
[2023-03-03 13:18] VITALS: RESP 16; TEMP 98.1
[2023-03-03 14:06] VITALS: BP 141/73; PULSE 77
--- NOTE | 2023-03-03 16:41 | US ---
EXAMINATION TYPE: US FNA thyroid first lesion DATE OF EXAM: 03/03/2023 2:06 PM CLINICAL INDICATION:Female, 72 years old with history of E04.1; , thyroid nodule. COMPARISON: None ATTENDING: Dr. Izaiah Espinoza PROCEDURE: Informed consent was obtained. The risks and benefits of the procedure were discussed with the patien t. The site was marked. Timeout procedure was performed Ultrasound imaging of the thyroid demonstrates right thyroid nodule. The patient was prepped, draped in the usual sterile fashion, and locally anesthetized with 1% lidoca ine. Five fine needle aspiration were then performed with a 25 gauge needle. Samples [facility] department for further analysis. Patient tolerated the procedure without incident and wa s sent home in stable condition. IMPRESSION: Successful ultrasound guided fine needle aspiration.
== END 2023-03-03 14:00 | disposition home or self-care (01) ==
LOC: RADPROMAIN 12:19
PROVIDERS: ATTEND Surgery Plastic and Reconstructive Surgery
DX: E04.1 Nontoxic single thyroid nodule (principal)
CPT/HCPCS: 10005; 88173; 88305